=== PATIENT | female | born 1955 | race Caucasian/White ===

== ENCOUNTER 2016-05-19 11:02 | Emergency (ER) | payer BC ==
[2016-05-19 12:41] LABS: HEMOGLOBIN 12.6 gm/dl (12.3-15.3); RED BLOOD COUNT 4.84 M/UL (4.00-5.10); WHITE BLOOD COUNT 4.9 K/UL (4.5-11.0)
[2016-05-19 13:02] LABS: BUN/CREATININE RATIO 13 (0-10)
[2016-11-20] MEDS ORDERED: MIRALAX17 GM PO (11:44)
[2016-11-20] MEDS ORDERED: SANCUSO1 EACH TP (11:44)
[2016-11-20] MEDS ORDERED: PHENERGAN 12.12.5 M1 PO (11:46)
[2016-11-20] MEDS ORDERED: CLARITIN10 MG PO (11:46)
[2016-11-20] MEDS ORDERED: MAGIC MOUTHWASH PO (11:49)
[2016-11-20] MEDS ORDERED: LOMOTIL 2.5-0.1 EACH PO (15:03)
== END 2016-05-19 15:27 | disposition home or self-care (01) ==
LOC: ER1 11:02
PROVIDERS: Physician Assistant
DX: R10.11 Right upper quadrant pain (principal); R11.0 Nausea; R14.0 Abdominal distension (gaseous)
CPT/HCPCS: 36415; 80053; 81001; 82150; 83690; 84484; 85025; 93005; 99284; J7050; Q9962